=== PATIENT | female | born 1960 ===

== ENCOUNTER 2017-03-10 17:44 | Emergency (ER) | payer MEDICAID ==
[2017-03-10] MEDS ORDERED: Oxycodone/Acetaminophen 5/325 mg Tab PO STA (18:25)
[2017-03-10] MEDS ORDERED: Amoxicillin-Clav 875-125 mg Tab PO STA (18:25)
--- NOTE | 2017-03-10 18:26 | C.PDOC ---
History Of Present Illness 56 yo female w/PMHx of NIDDM, HTN come in for evaluation of Right lower toothache gradually developed fora past 2 days. Pt reports, pain is localized, " aching", worse with chewing. Otherwise, pt denies fever, chills, headache, dizziness, vertigo, earache, drooling, dysphagia, dyspnea, trismus, CP, SOB, cough, abd. pain, N/V/D, denies facial swelling, food intolerance, denies recent dental work. Ambulate to Ed for evaluation, not in any apparent distress. Time Seen by Provider: 03/10/17 18:21 Chief Complaint (Nursing): Dental Pain History Per: Patient Onset/Duration Of Symptoms: Gradual Current Symptoms Are (Timing): Still Present Past Medical History Reviewed: Historical Data, Nursing Documentation, Vital Signs Vital Signs: Last Vital Signs Temp 94.9 F L 03/10/17 17:45 Pulse 79 03/10/17 17:45 Resp 20 03/10/17 17:45 BP 154/73 H 03/10/17 17:45 Pulse Ox 100 03/10/17 17:45 - Medical History PMH: HTN Family History: States: No Known Family Hx - Social History Hx Alcohol Use: No Hx Substance Use: No Review Of Systems Except As Marked, All Systems Reviewed And Found Negative. Constitutional: Negative for: Fever, Chills Eyes: Negative for: Vision Change ENT: Positive for: Mouth Pain. Negative for: Ear Discharge, Nose Discharge, Nose Congestion, Mouth Swelling, Throat Pain, Throat Swelling Cardiovascular: Negative for: Chest Pain, Palpitations, Edema, Light Headedness Respiratory: Negative for: Cough, Shortness of Breath, Wheezing Gastrointestinal: Negative for: Nausea, Vomiting, Abdominal Pain Musculoskeletal: Negative for: Neck Pain, Back Pain Skin: Negative for: Rash Neurological: Negative for: Weakness, Numbness, Altered Mental Status, Headache , Dizziness Physical Exam - Physical Exam Appears: Well, Non-toxic, No Acute Distress Skin: Normal Color, Warm, No Rash Eye(s): bilateral: PERRL Ear(s): Bilateral: Normal Nose: No Flaring, No Discharge Oral Mucosa: Moist, No Drooling, No Trismus Tongue: Normal Appearing Lips: Normal Appearing Teeth: Caries (Right lower 1st molar large cavity, tendernes to percussion, mild erythema to gums. No evidence of tooth abscess, no facial edema or cellulitis.), No Loose Gingiva: Erythema, No Abscess Throat: Normal, No Erythema, No Exudate, No Drooling, Other (uvula midline, no edema.) Neck: Trachea Midline, Supple Chest: Symmetrical Respiratory: No Stridor, No Wheezing Neurological/Psych: Oriented x3, Normal Speech ED Course And Treatment O2 Sat by Pulse Oximetry: 100 Pulse Ox Interpretation: Normal Progress Note: On re-eavluation, pt is afebrile, hemodynamicaly stable. Non- toxic. Tolerate Po well in ED. Ambulatory in ED, not in any apparent deiterss. Pt was found slight hypothermic on triage, denies any other active complaints but toothache. PuslEOx 100% RA. ENT: exam c/w Right lower toothache/ gingivitis. No evidence of tooth abscess. uvula midline, no edema. No drooling, no dysphagia or trismus. Lungs: CTA B/L, BS equal B/L. Pt advised on course of ds. ref. to f/u with Dentist in 1-2 days for re-eval. return if any new changes. Pt is stable for discharge and outpt f/u now. Disposition Counseled Patient/Family Regarding: Diagnosis, Need For Followup, Rx Given - Disposition Referrals: [facility] [Provider Group] [facility] [Provider Group] Disposition: HOME/ ROUTINE Disposition Time: 18:25 Condition: STABLE Additional Instructions: Take medication as prescribed Warm salty water tooth baths 2-3 times daily for 5 minutes Follow up with Dentist in 2-3 days for re-evaluation. Return to ED if any worsening or new changes. Prescriptions: Amoxicillin/Clavulanate [Augmentin 875 MG-125 MG] 1 tab PO BID #14 tab traMADol [Ultram] 50 mg PO TID #7 tab Instructions: Toothache (ED) - Clinical Impression Clinical Impression: Dental caries
--- NOTE | 2017-03-10 18:27 | C.PDOC ---
Time Seen by Provider: 03/10/17 18:21 Chief Complaint (Nursing): Dental Pain Past Medical History Reviewed: Historical Data, Nursing Documentation, Vital Signs Vital Signs: Last Vital Signs Temp 94.9 F L 03/10/17 17:45 Pulse 79 03/10/17 17:45 Resp 20 03/10/17 17:45 BP 154/73 H 03/10/17 17:45 Pulse Ox 100 03/10/17 17:45 - Medical History PMH: HTN - Social History Hx Alcohol Use: No Hx Substance Use: No ED Course And Treatment O2 Sat by Pulse Oximetry: 100 - Scribe Statement The provider has reviewed the documentation as recorded by the Shereeibuziel White All medical record entries made by the Shereeibuziel were at my direction and personally dictated by me. I have reviewed the chart and agree that the record accurately reflects my personal performance of the history, physical exam, medical decision making, and the department course for this patient. I have also personally directed, reviewed, and agree with the discharge instructions and disposition.
[2017-03-10] MEDS ORDERED: Amoxicillin-Clav 875-125 mg Tab PO ONE (18:31)
[2017-03-10] MEDS ORDERED: Oxycodone/Acetaminophen 5/325 mg Tab ONE (18:32)
[2017-03-10 19:01] VITALS: BP 134/62; PULSE 68; RESP 16; TEMP 97.6; O2SAT 97
== END 2017-03-10 19:02 | disposition home or self-care (01) ==
LOC: C.ER 17:44
DX: K02.9 Dental caries, unspecified (principal); E11.9 Type 2 diabetes mellitus without complications